=== PATIENT | female | born 1960 ===

== ENCOUNTER 2017-03-21 09:47 | Day surgery (SDC) | payer BC ==
[2017-03-17 09:27] VITALS: BMI 22.3
[2017-03-21] MEDS ORDERED: Propofol 10 mg/ml Inj (20 ML) ONE (11:39)
[2017-03-21] MEDS ORDERED: Sodium Chloride 0.9% 1,000 ML IV SCH (12:15)
[2017-03-21 12:54] VITALS: BP 126/64; PULSE 63; RESP 18; TEMP 97.9; O2SAT 100
== END 2017-03-21 13:00 | disposition home or self-care (01) ==
LOC: ENDO 09:47
PROVIDERS: ATTEND Internal Medicine
DX: K62.5 Hemorrhage of anus and rectum (principal); K64.8 Other hemorrhoids
CPT/HCPCS: 45378; J2704; J7030; J7040